=== PATIENT | female | born 1950 | race Caucasian/White ===

== ENCOUNTER → 2020-07-16 | Outpatient (CLI) | payer MEDICARE, BC ==
[~2020-07-16] MED LIST: ALBUTEROL NEB; CARVEDILOL6.25 MG PO; CLOPIDOGREL75 MG PO; FUROSEMIDE40 MG PO; GOOD SENSE ASP325 MG PO; IPATROPIUM NEB; POTASSIUM CHLO10 ME5 PO; SERTRALINE HYDR50 MG PO; TESSALON PERLE100 MG PO; VITAMIN D350 MC2 PO
== END | disposition home or self-care (01) ==
LOC: RAD 10:46
PROVIDERS: ATTEND Family Medicine
DX: R05 Cough (principal); Z86.16 Personal history of COVID-19

== ENCOUNTER 2020-07-27 13:04 | Observation (INO) | payer MEDICARE, BC ==
[~2020-07-27] VITALS: Ht 165.1 cm; Wt 80.0 kg
[2020-07-27 13:13] VITALS: BP 125/65
[2020-07-27 13:40] LABS: HEMATOCRIT 44.3 % (37.0-47.0); MEAN CELL VOLUME 91.9 fl (81.0-99.0); MEAN CORPUSCULAR HGB 30.1 pg (27.0-31.0); MEAN CORPUSCULAR HGB CONC 32.7 g/dl (33.0-37.0); MEAN PLATELET VOLUME 8.7 fl (9.6-12.3); PLATELET COUNT AUTOMATED 221 10*3/uL (130-400); RED BLOOD COUNT 4.82 10*6/uL (4.10-5.10); RED CELL DISTRI WIDTH 12.8 % (0-14.5); WHITE BLOOD COUNT 13.1 10*3/uL (4.8-10.8)
[2020-07-27 13:51] LABS: ACT PARTIAL THROMBO TIME 27.6 SECONDS (20.0-32.1)
[2020-07-27 13:52] VITALS: BP 119/62
[2020-07-27 13:55] LABS: ALBUMIN 3.2 gm/dl (3.1-4.5); ALKALINE PHOSPHATASE 56 U/L (45-117); BUN 18 mg/dl (7-24); CHLORIDE 104 mmol/L (98-107); CREATININE 1.07 mg/dL (0.55-1.02); POTASSIUM 3.7 mmol/L (3.5-5.1); SGOT/AST 13 IU/L (3-35); SGPT/ALT 31 U/L (12-78); SODIUM 140 mmol/L (136-145); TOTAL PROTEIN 6.6 gm/dL (6.4-8.2)
[2020-07-27 13:57] LABS: ATYPICAL LYMPHS 3 % (0-0); PLATELET SUFFICIENCY NORMAL (NORMAL); TOTAL CELLS COUNTED 100 #CELLS; TROPONIN I < 0.015 ng/ml (<0.045)
[2020-07-27 13:58] LABS: LIPASE 252 U/L (73-393)
[2020-07-27 14:43] VITALS: BP 118/50
[2020-07-27] MEDS ORDERED: CLOPIDOGREL75 MG PO (16:52)
[2020-07-27] MEDS ORDERED: FUROSEMIDE40 MG PO (16:52)
[2020-07-27] MEDS ORDERED: POTASSIUM CHLO10 ME5 PO (16:53)
[2020-07-27] MEDS ORDERED: SERTRALINE HYDR50 MG PO (16:53)
[2020-07-27] MEDS ORDERED: CARVEDILOL6.25 MG PO (16:53)
[2020-07-27] MEDS ORDERED: GOOD SENSE ASP325 MG PO (17:13)
[2020-07-27 18:27] VITALS: BP 131/74
[2020-07-27] MEDS ORDERED: TESSALON PERLE100 MG PO (18:52)
[2020-07-27] MEDS ORDERED: ALBUTEROL NEB (18:53)
[2020-07-27] MEDS ORDERED: IPATROPIUM NEB (18:53)
[2020-07-27 20:05] VITALS: BP 125/60
[2020-07-28] VITALS: BP 118/59
[2020-07-28 06:33] LABS: HEMATOCRIT 42.5 % (37.0-47.0); MEAN CORPUSCULAR HGB CONC 32.2 g/dl (33.0-37.0); MEAN PLATELET VOLUME 8.5 fl (9.6-12.3); PLATELET COUNT AUTOMATED 183 10*3/uL (130-400); RED BLOOD COUNT 4.57 10*6/uL (4.10-5.10); WHITE BLOOD COUNT 9.9 10*3/uL (4.8-10.8)
[2020-07-28 06:58] LABS: BUN 17 mg/dl (7-24); CHLORIDE 107 mmol/L (98-107); CHOLESTEROL 185 mg/dL (<200); CREATININE 1.01 mg/dL (0.55-1.02); POTASSIUM 4.4 mmol/L (3.5-5.1); SGOT/AST 17 IU/L (3-35); SGPT/ALT 29 U/L (12-78); SODIUM 140 mmol/L (136-145); TRIGLYCERIDES 194 mg/dl (<150); VLDL CHOLESTEROL 39 mg/dL (6-40)
[2020-07-28 07:02] LABS: ALKALINE PHOSPHATASE 49 U/L (45-117); HDL CHOLESTEROL 46 mg/dl (40-60); LDL CHOLESTEROL 100 mg/dL (9-159)
[2020-07-28 07:43] LABS: BASOPHILS 1 % (0-1); PLATELET SUFFICIENCY NORMAL (NORMAL); TOTAL CELLS COUNTED 100 #CELLS
[2020-07-28 08:00] VITALS: BP 126/61
[2020-07-28 12:00] VITALS: BP 122/58
[2020-07-28] MEDS ORDERED: VITAMIN D350 MC2 PO (13:57)
== END 2020-07-28 15:00 | disposition home or self-care (01) ==
LOC: ED 13:04 → EDHOLD 16:42 → 5E 18:51
PROVIDERS: Emergency Medicine; Internal Medicine; ADMIT Internal Medicine; ATTEND Internal Medicine
DX: R07.2 Precordial pain (principal); I50.9 Heart failure, unspecified; F17.200 Nicotine dependence, unspecified, uncomplicated; R00.0 Tachycardia, unspecified; D72.829 Elevated white blood cell count, unspecified; R79.89 Other specified abnormal findings of blood chemistry; N17.0 Acute kidney failure with tubular necrosis; R73.9 Hyperglycemia, unspecified; E83.41 Hypermagnesemia; I67.1 Cerebral aneurysm, nonruptured; I48.91 Unspecified atrial fibrillation; F41.9 Anxiety disorder, unspecified; G45.9 Transient cerebral ischemic attack, unspecified; R65.10 Systemic inflammatory response syndrome (SIRS) of non-infectious origin without acute organ dysfunction; Z90.49 Acquired absence of other specified parts of digestive tract; Z90.710 Acquired absence of both cervix and uterus; Z98.890 Other specified postprocedural states; Z95.5 Presence of coronary angioplasty implant and graft

== ENCOUNTER → 2022-05-10 | Outpatient (CLI) | payer MEDICARE, BC ==
[2022-05-10 10:43] LABS: BILIRUBIN Negative (Negative); BLOOD Negative (Negative); CLARITY Clear (Clear); COLOR Yellow (Yellow); GLUCOSE Negative (Negative); KETONE Negative (Negative); LEUKO ESTERASE Negative (Negative); NITRITE Negative (Negative); PH 5.5 (4.5-8.0); SPECIFIC GRAVITY 1.015 (1.001-1.030); UROBILINOGEN 0.2 E.U./dl (0.0-1.0)
[2022-05-10 10:54] LABS: BACTERIA 1+; EPITHELIAL CELLS 0-2; YEAST TRACE
== END | disposition home or self-care (01) ==
LOC: LAB 10:20
PROVIDERS: ATTEND Nurse Practitioner Family
DX: R82.90 Unspecified abnormal findings in urine (principal)

== ENCOUNTER → 2022-08-02 | Outpatient (CLI) | payer MEDICARE, BC | END | disposition home or self-care (01) | LOC: RAD 12:39 | PROVIDERS: ATTEND Nurse Practitioner Family | DX: R31.9 Hematuria, unspecified (principal); R10.9 Unspecified abdominal pain ==

== ENCOUNTER → 2022-09-12 | Outpatient (CLI) | payer MEDICARE, BC | END | disposition home or self-care (01) | LOC: RAD 15:11 | PROVIDERS: ATTEND Nurse Practitioner Family | DX: U07.1 COVID-19 (principal) ==

== ENCOUNTER 2023-06-02 10:09 | Emergency (ER) | payer MEDICARE, BC ==
[~2023-06-02] VITALS: Ht 12.7 cm; Wt 78.0 kg
[2023-06-02 10:56] LABS: BILIRUBIN Negative (Negative); BLOOD 2+ (Negative); CLARITY Turbid (Clear); COLOR Yellow (Yellow); GLUCOSE Negative (Negative); KETONE Negative (Negative); LEUKO ESTERASE 3+ (Negative); NITRITE Negative (Negative); PH 5.5 (4.5-8.0); UROBILINOGEN 0.2 E.U./dl (0.0-1.0)
[2023-06-02 11:05] LABS: BASO # 0.1 10*3/uL (0.0-0.1); EOS # 0.1 10*3/uL (0.0-0.4); EOS % 1.7 % (1.0-4.0); HEMATOCRIT 44.6 % (37.0-47.0); LYMPH # 2.1 10*3/uL (1.3-4.4); LYMPH % 26.2 % (27.0-41.0); MEAN CELL VOLUME 92.1 fl (81.0-99.0); MEAN CORPUSCULAR HGB 30.2 pg (27.0-31.0); MEAN CORPUSCULAR HGB CONC 32.7 g/dl (33.0-37.0); MEAN PLATELET VOLUME 9.1 fl (9.6-12.3); MONO % 12.2 % (3.0-9.0); NEUT # 4.6 10*3/uL (2.3-7.9); NEUT % 58.6 % (47.0-73.0); PLATELET COUNT AUTOMATED 264 10*3/uL (130-400); RED BLOOD COUNT 4.84 10*6/uL (4.10-5.10); RED CELL DISTRI WIDTH 12.6 % (0-14.5); WHITE BLOOD COUNT 7.9 10*3/uL (4.8-10.8)
[2023-06-02 11:21] LABS: WBC TNTC wbc/hpf (0-5)
[2023-06-02 11:23] LABS: BACTERIA 3+
[2023-06-02] MEDS ORDERED: CIPRO500 MG PO (11:24)
[2023-06-02 11:26] LABS: ALKALINE PHOSPHATASE 52 U/L (46-116); BUN 13 mg/dl (9-23); CHLORIDE 101 mmol/L (98-107); LIPASE 56 U/L (12-53); POTASSIUM 4.3 mmol/L (3.4-5.1); SGPT/ALT 28 U/L (5-49); TOTAL PROTEIN 7.2 gm/dL (6.0-8.0)
[2023-06-02] MEDS ORDERED: PYRIDIUM100 MG PO (11:37)
== END 2023-06-02 11:37 | disposition home or self-care (01) ==
LOC: ED 10:09
PROVIDERS: Internal Medicine
DX: N39.0 Urinary tract infection, site not specified (principal); I10 Essential (primary) hypertension; Z88.0 Allergy status to penicillin; Z88.4 Allergy status to anesthetic agent; Z79.899 Other long term (current) drug therapy; Z79.82 Long term (current) use of aspirin; Z90.711 Acquired absence of uterus with remaining cervical stump; Z90.49 Acquired absence of other specified parts of digestive tract